=== PATIENT | female | born 1985 | race Asian ===

== ENCOUNTER 2019-04-08 23:58 | Emergency (ER) | payer SELFPAY ==
[~2019-04-08] VITALS: Ht 160 cm; Wt 62.3 kg
[2019-04-09 00:44] LABS: INFLUENZA TYPE A NEGATIVE FOR TYPE A (NEGATIVE); INFLUENZA TYPE B POSITIVE FOR TYPE B (NEGATIVE)
[2019-04-09] MEDS ORDERED: ACETAMINOPHEN 500 MG TABLET PO ONE (01:15)
[2019-04-09] MEDS ORDERED: ACETAMINOPHEN 500 MG TABLET ONE (01:16)
[2019-04-09 01:21] VITALS: BP 112/62
[2019-04-09] MEDS ORDERED: IBUPROFEN 600 MG TABLET PO ONE (01:30)
[2019-04-09] MEDS ORDERED: GuaiFENesin [SUGAR-FREE] 200 MG/10 ML SOLUTION UDCUP PO ONE (01:30)
== END 2019-04-09 01:51 | disposition home or self-care (01) ==
LOC: EMS 23:58
DX: J11.1 Influenza due to unidentified influenza virus with other respiratory manifestations (principal); M79.10 Myalgia, unspecified site
CPT/HCPCS: 87804